=== PATIENT | male | born 1990 | race Caucasian/White ===

== ENCOUNTER 2021-06-07 03:04 | Emergency (ER) | payer SELFPAY ==
[2021-06-07] MEDS ORDERED: Ketorolac 30 MG/ML SDV IM ONE (03:18)
[2021-06-07] MEDS ORDERED: Lidocaine 2% Viscous Solution 15 ML UD PO ONE (03:18)
== END 2021-06-07 03:45 | disposition home or self-care (01) ==
LOC: MW.ED 03:04
DX: K02.9 Dental caries, unspecified (principal); Z91.040 Latex allergy status
CPT/HCPCS: 96372; 99282; A9270; J1885; 99283